=== PATIENT | male | born 2000 | race Caucasian/White ===

== ENCOUNTER 2020-03-27 00:33 | Emergency (ER) | payer OTHER, MEDICAID ==
[~2020-03-27] VITALS: Ht 170.2 cm; Wt 59.4 kg
[2020-03-27 00:40] VITALS: BP 124/80
--- NOTE | 2020-03-27 00:42 | NUR ---
PT AMBULATED TO BED 7 WITH STEADY GAIT.
--- NOTE | 2020-03-27 00:52 | NUR ---
DR. OLIVER AT BEDSIDE.
[2020-03-27] MEDS ORDERED: LIDOCAINE/EPI 1% 1:100000 20 ML VIAL INJ ONE (00:55)
[2020-03-27] MEDS ORDERED: BACITRACIN OINT 500 UNITS/GM PKT TP ONE (00:55)
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
--- NOTE | 2020-03-27 01:20 | NUR ---
DR. OLIVER AT BEDSIDE.
[2020-03-27] MEDS ORDERED: LIDOCAINE 2% 1000 MG/50 ML VIAL INJ ONE (01:50)
[2020-03-27] MEDS ORDERED: ceFAZolin 1,000 MG VIAL IM ONE (02:05)
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
[2020-03-27 02:32] VITALS: BP 124/80
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
== END 2020-03-27 02:32 | disposition home or self-care (01) ==
LOC: MED 00:33
DX: S01.511A Laceration without foreign body of lip, initial encounter (principal); S01.01XA Laceration without foreign body of scalp, initial encounter; Y04.2XXA Assault by strike against or bumped into by another person, initial encounter; Y93.89 Activity, other specified; Y92.89 Other specified places as the place of occurrence of the external cause; Y99.8 Other external cause status
CPT/HCPCS: 12001; 12011; 99284; J2001; 90715; J0690

== ENCOUNTER 2020-04-02 08:19 | Emergency (ER) | payer OTHER, MEDICAID ==
[~2020-04-02] VITALS: Ht 170.2 cm; Wt 63.5 kg
--- NOTE | 2020-04-02 08:24 | NUR ---
pt ambulatory to be.
[2020-04-02 08:25] VITALS: BP 134/52
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
--- NOTE | 2020-04-02 08:38 | NUR ---
dr montague at bedside evalauting pt.
[2020-04-02] MEDS ORDERED: BACITRACIN OINT 500 UNITS/GM PKT TP ONE (08:47)
--- NOTE | 2020-04-02 08:50 | NUR ---
suture was remove by dr montague.pt no complaint.
[2020-04-02 08:52] VITALS: BP 134/52
== END 2020-04-02 08:52 | disposition home or self-care (01) ==
LOC: MED 08:19
DX: S01.81XD Laceration without foreign body of other part of head, subsequent encounter (principal); X58.XXXD Exposure to other specified factors, subsequent encounter; Z48.00 Encounter for change or removal of nonsurgical wound dressing
CPT/HCPCS: 99282